=== PATIENT | female | born 1960 | race Caucasian/White ===

== ENCOUNTER 2023-07-15 11:42 | Emergency (ER) | payer OTHER ==
[~2023-07-15] VITALS: Ht 167.6 cm; Wt 66.1 kg
[2023-07-15 11:54] VITALS: TEMP 96.5
[2023-07-15] MEDS ORDERED: NITROGLYCERIN 0.4MG SUBL TABLET SL PRN (11:55)
[2023-07-15] MEDS ORDERED: ISOVUE-370 76% 100ML VIAL As Ordered ONE (11:57)
[2023-07-15] MEDS: ONDANSETRON 4MG 2ML VIAL IV ONE (12:20)
[2023-07-15 12:28] LABS: BASO % 0.3 % (0.0-1.0); EOS # 0.1 10^3/uL (0.0-0.5); EOS % 0.9 % (0.0-3.0); HEMATOCRIT 44.9 % (36.0-47.0); HEMOGLOBIN 15.6 g/dl (12.0-15.5); LYMPH # 3.1 10^3/uL (1.5-5.0); LYMPH % 34.9 % (24.0-44.0); MEAN CORPUSCULAR HEMOGLOBIN 32.6 pg (27.0-33.0); MEAN CORPUSCULAR HGB CONC 34.7 g/dl (32.0-36.5); MEAN CORPUSCULAR VOLUME 93.7 fl (80.0-96.0); MONO # 0.4 10^3/uL (0.0-0.8); MONO % 4.5 % (2.0-8.0); NEUTROPHILS # 5.3 10^3/uL (1.5-8.5); NEUTROPHILS % 59.2 % (36.0-66.0); PLATELET COUNT, AUTOMATED 277 10^3/uL (150-450); RED BLOOD COUNT 4.79 10^6/uL (4.00-5.40); WHITE BLOOD COUNT 8.9 10^3/uL (4.0-10.0)
[2023-07-15 12:40] LABS: INR 0.97; PARTIAL THROMBOPLASTIN TIME 26.2 SECONDS (24.8-34.2); PROTHROMBIN TIME 12.6 SECONDS (12.5-14.5)
[2023-07-15] MEDS ORDERED: ROSU10TA6 PO (12:42)
[2023-07-15] MEDS ORDERED: ECOT81TA5 PO (12:42)
[2023-07-15] MEDS ORDERED: METO50TA7 PO (12:42)
[2023-07-15] MEDS ORDERED: LOSA50TA28 PO (12:42)
[2023-07-15 12:52] LABS: CK-MB VALUE MASS < 1.0 NG/ML (<3.6)
[2023-07-15 12:54] LABS: LIPASE 35 U/L (12-53)
[2023-07-15 12:56] LABS: ALKALINE PHOSPHATASE 60 U/L (46-116); ALT/SGPT 20 U/L (7.0-40); AST/SGOT 19 U/L (<34); BILIRUBIN,DIRECT 0.2 MG/DL (<0.4); BILIRUBIN,TOTAL 0.5 MG/DL (0.3-1.2); BLOOD UREA NITROGEN 15 MG/DL (9-23); CALCIUM LEVEL 9.8 MG/DL (8.3-10.6); CARBON DIOXIDE LEVEL 21 MMOL/L (20-31); CHLORIDE LEVEL 110 MMOL/L (98-107); CREATININE FOR GFR 0.85 MG/DL (0.55-1.30); GLOMERULAR FILTRATION RATE > 60.0 (>45); GLUCOSE, FASTING 140 MG/DL (74-106); POTASSIUM SERUM 4.3 MMOL/L (3.5-5.1); SODIUM LEVEL 138 MMOL/L (136-145)
[2023-07-15] MEDS ORDERED: NITR0.4S14 SL (12:59)
[2023-07-15] MEDS ORDERED: HOME MED LIST COMPLETE! XX SCH (13:00)
[2023-07-15 13:01] LABS: CPK CREATINE PHOSPHOKINASE 79 U/L (34-145); MB/CK RELATIVE INDEX 1.26 (< OR =4)
[2023-07-15 13:55] LABS: CK-MB VALUE MASS < 1.0 NG/ML (<3.6)
[2023-07-15 13:57] LABS: CPK CREATINE PHOSPHOKINASE 71 U/L (34-145)
[2023-07-15] MEDS: MECLIZINE 25 MG TABLET PO ONE (14:32)
[2023-07-15] MEDS ORDERED: MECL-209 PO (15:15)
[2023-07-15] MEDS ORDERED: ONDA4TAB6 PO (15:18)
[2023-07-15 15:30] VITALS: BP 116/76
[2023-07-15 15:37] LABS: CK-MB VALUE MASS < 1.0 NG/ML (<3.6)
[2023-07-15 15:39] LABS: CPK CREATINE PHOSPHOKINASE 77 U/L (34-145); MB/CK RELATIVE INDEX 1.29 (< OR =4)
[2023-07-15 15:45] VITALS: O2SAT 99
== END 2023-07-15 15:59 | disposition home or self-care (01) ==
LOC: M ED 11:42
DX: R07.9 Chest pain, unspecified (principal); H81.4 Vertigo of central origin; I65.23 Occlusion and stenosis of bilateral carotid arteries; I10 Essential (primary) hypertension; E78.5 Hyperlipidemia, unspecified; Z86.79 Personal history of other diseases of the circulatory system; Z87.891 Personal history of nicotine dependence; Z79.82 Long term (current) use of aspirin; Z79.811 Long term (current) use of aromatase inhibitors; Z79.83 Long term (current) use of bisphosphonates; Z79.899 Other long term (current) drug therapy
CPT/HCPCS: 70450; 70496; 70498; 70544; 70551; 71045; 80047; 80048; 80076; 82550; 82553; 83690; 85025; 85610; 85730; 93005; 93041; 94760; 96374; 97161; 99285; J2405; Q9967